=== PATIENT | female | born 1995 | race Caucasian/White ===

== ENCOUNTER → 2018-07-21 | Outpatient (CLI) | payer BC, MEDICAID ==
--- NOTE | 2018-07-21 17:38 | Diagnostic Imaging Report ---
INDICATION: survey. TECHNIQUE: Multiple real-time grayscale images were obtained over the gravid uterus. COMPARISON: None FINDINGS: There is a single live fetus in a transverse presentation. Placenta is posterior. Placenta appears to be marginal in location. heart rate was recorded at 142 beats per minute. Amniotic fluid volume is normal. survey demonstrates kidneys, bladder and brain to be unremarkable. stomach is not well seen on today's study. Four-chamber heart view was limited. There is a three-vessel cord with normal insertion. spine is unremarkable. Biometrical measurements are as follows: Biparietal 4.64 cm, age 20 weeks 1 days. Head circumference 17.79 cm, age 20 weeks 2 days. Abdominal circumference 15.64 cm, age 20 weeks 6 days. Femur length 3.61 cm, age 21 weeks 4 days. Sonographic estimate age: 20 weeks 5 days. Sonographic estimated date of delivery: 12/03/18. Estimated Weight: 390 gm (+/- 57 gm). LMP percentile: 68%. heart rate: 142 beats per minute. number: 1 of 1. IMPRESSION: Single live IUP 20 weeks 5 days gestational age. Estimated date of confinement sonographically is 12/03/2018. survey is unremarkable although the stomach and four-chamber heart view were not well seen and followup is recommended. In addition, there appears to be a marginal posterior placenta and followup can be for performed. Dictated by: Dictated on workstation # [id number]
== END ==
LOC: RAD 16:01
PROVIDERS: ATTEND Obstetrics & Gynecology
DX: Z36.89 Encounter for other specified antenatal screening (principal); Z3A.20 20 weeks gestation of pregnancy
CPT/HCPCS: 76805

== ENCOUNTER 2018-11-10 18:50 | Outpatient (CLI) | payer MEDICAID ==
[~2018-11-10] VITALS: Ht 167.6 cm; Wt 117.0 kg
--- NOTE | 2018-11-10 18:45 | NUR ---
BURROUGHSSUZANNE Lew presented to unit via AMBULATION from ED, accompanied by S/0, with c/o EPIGASTRIC PAIN. SUZANNE BURROUGHS weighed, gowned, voided, and to bed. EFHM and TOCO applied, VS taken. HEIKESUZANNE Louann oriented to bed controls, call light, TV, heat, and A/C controls.
[2018-11-10 19:02] VITALS: BP 142/84
[2018-11-10] MEDS ORDERED: METF-397 PO (19:14)
[2018-11-10] MEDS ORDERED: PREN-142 PO (19:14)
[2018-11-10 19:50] LABS: BILIRUBIN,URINE NEGATIVE (NEGATIVE); CLARITY,URINE SLIGHTLY CLOUDY; COLOR,URINE YELLOW; GLUCOSE, URINE (UA) NEGATIVE (NEGATIVE); KETONES,URINE NEGATIVE (NEGATIVE); LEUKOCYTE ESTERASE ,URINE 1+ (NEGATIVE); NITRITE,URINE NEGATIVE (NEGATIVE); PH,URINE 6.5 (5-9); PROTEIN,URINE 1+ (NEGATIVE); UROBILINOGEN,URINE 4 MG/DL (NORMAL)
[2018-11-10 19:58] LABS: BACTERIA,URINE FEW /HPF; SQUAMOUS EPITHELIAL CELL,UR 25-50 /HPF
[2018-11-10 20:00] VITALS: BP 125/77
[2018-11-10] MEDS ORDERED: FLU QUADRIvalent (5+ YOA) 2018-2019 (AFLURIA) 0.5 ML IM ONE (20:00)
[2018-11-10 20:47] LABS: BASOPHILS % (AUTO) 0 % (0-10); EOSINOPHILS # (AUTO) 0.2 10^3/uL (0.0-0.3); EOSINOPHILS % (AUTO) 1 % (0-10); HEMATOCRIT 34 % (35-52); HEMOGLOBIN 11.4 G/DL (11.5-16.0); LYMPHOCYTES # (AUTO) 2.5 X 10^3 (1.0-4.0); LYMPHOCYTES % (AUTO) 18 % (12-44); MEAN CORPUSCULAR HEMOGLOBIN 29 PG (25-34); MEAN CORPUSCULAR HGB CONC 33 G/DL (32-36); MEAN CORPUSCULAR VOLUME 87 FL (80-99); MEAN PLATELET VOLUME 9.9 FL (7.4-10.4); MONOCYTES # (AUTO) 1.3 X 10^3 (0.0-1.0); MONOCYTES % (AUTO) 9 % (0-12); NEUTROPHILS # (AUTO) 10.2 X 10^3 (1.8-7.8); NEUTROPHILS % (AUTO) 72 % (42-75); PLATELET COUNT 410 10^3/uL (130-400); RED CELL DISTRIBUTION WIDTH 12.7 % (10.0-14.5); WHITE BLOOD COUNT 14.3 10^3/uL (4.3-11.0)
[2018-11-10 21:05] LABS: ALANINE AMINOTRANSFERASE 11 U/L (0-55); ALBUMIN 3.4 GM/DL (3.2-4.5); ALKALINE PHOSPHATASE 151 U/L (40-136); BILIRUBIN,TOTAL 0.3 MG/DL (0.1-1.0); BUN/CREATININE RATIO 9; CALCIUM 9.6 MG/DL (8.5-10.1); CARBON DIOXIDE 22 MMOL/L (21-32); CHLORIDE 105 MMOL/L (98-107); CREATININE SERUM 0.64 MG/DL (0.60-1.30); GFR ESTIMATED > 60; GLUCOSE 86 MG/DL (70-105); POTASSIUM 4.1 MMOL/L (3.6-5.0); SODIUM 137 MMOL/L (135-145); TOTAL PROTEIN 6.7 GM/DL (6.4-8.2)
[2018-11-10 21:07] LABS: BAND NEUTROPHILS 0 %; BASOPHILS % (MANUAL) 1 %; EOSINOPHILS % (MANUAL) 0 %; LYMPHOCYTES % (MANUAL) 24 %; MONOCYTES % (MANUAL) 6 %; NEUTROPHILS % (MANUAL) 69 %; RBC MORPH NORMAL
[2018-11-10] MEDS ORDERED: HYDROcodone/APAP 5 MG/325 MG (LORTAB) TAB PO ONE (21:30)
--- NOTE | 2018-11-10 22:08 | NUR ---
POC reviewed w/pt. & SO, both verbalized understanding, reassurance given & instructed pt. to go to sched appt. in office tomorrow. Pt. taken off monitor & getting dressed to go home. D/C instructions given & explained, pt. verbalized understanding & signed, copy of D/C instructions to pt. Pt. left [facility] ambulatory escorted by SO, to home via private vehicle.
== END 2018-11-10 22:08 | disposition home or self-care (01) ==
LOC: WSo 18:50 → LDRP 18:50 → WSo 22:08
PROVIDERS: ATTEND Obstetrics & Gynecology
DX: O99.89 Other specified diseases and conditions complicating pregnancy, childbirth and the puerperium (principal); R10.11 Right upper quadrant pain; Z3A.36 36 weeks gestation of pregnancy
CPT/HCPCS: 36415; 80053; 81000; 85007; 85027; 87088; 87804; 99213

== ENCOUNTER 2018-12-03 07:10 | Inpatient (IN) | payer MEDICAID ==
[~2018-12-03] VITALS: Ht 172.7 cm; Wt 121.1 kg
[2018-12-03] VITALS (57 sets, daily range): BP systolic 92–174; BP diastolic 50–97
[~2018-12-03 07:10] MED LIST: METF-397 PO; PREN-142 PO
--- OUTSIDE RECORDS SUMMARY | 2018-12-03 07:22 | XMS REPORT | Continuity of Care Document ---
Author Author [facility] Address Unknown Phone Unavailable Allergies Active Description Code Type Severity Reaction Onset Reported/Identified Relationship to Patient Clinical Status Yes No Known Drug Allergies [id number] Drug Allergy Unknown N/A 11/10/2018 Medications There is no data. Problems Date Dx Coded Attending Type Code Diagnosis Diagnosed By 04/21/2014 MELL ARCE DO 625.9 PELVIC PAIN 04/21/2014 MELL ARCE DO V74.5 STD SCREEN 04/21/2014 NICOLE ENGLE APRN 625.9 PELVIC PAIN 04/21/2014 NICOLE ENGLE APRN V74.5 STD SCREEN 12/07/2014 NICOLE ENGLE APRN V25.09 CONTRACEPTIVE COUNSELING - GENERAL 07/23/2018 Ot Z36.89 ENCOUNTER FOR OTHER SPECIFIED 07/23/2018 Ot Z3A.20 20 WEEKS GESTATION OF Procedures Code [place] [id number] TRICHOMONAS (IN-HOUSE) 04/21/2014 55480 GC/CHLAM PROBE ([facility]) 04/22/2014 60641 CULTURE UROGENITAL 04/25/2014 78528 TEST, URINE (IN- HOUSE) 12/07/2014 Results Test Result Range Complete urinalysis with reflex to culture - 11/10/18 19:40 Urine color determination YELLOW NRG Urine clarity determination SLIGHTLY CLOUDY NRG Urine pH measurement by test strip 6.5 5-9 Specific gravity of urine by test strip 1.020 1.016- 1.022 Urine protein assay by test strip, semi-quantitative 1+ NEGATIVE Urine glucose detection by automated test strip NEGATIVE NEGATIVE Erythrocytes detection in urine sediment by light microscopy NEGATIVE NEGATIVE Urine ketones detection by automated test strip NEGATIVE NEGATIVE Urine nitrite detection by test strip NEGATIVE NEGATIVE Urine total bilirubin detection by test strip NEGATIVE NEGATIVE Urine urobilinogen measurement by automated test strip (mass/volume) 4 mg/dL NORMAL Urine leukocyte esterase detection by dipstick 1+ NEGATIVE Automated urine sediment erythrocyte count by microscopy (number/high power field) NONE NRG Automated urine sediment leukocyte count by microscopy (number/high power field ) [HPF] NRG Bacteria detection in urine sediment by light microscopy FEW NRG Squamous epithelial cells detection in urine sediment by light microscopy 25-50 NRG Crystals detection in urine sediment by light microscopy NONE NRG Casts detection in urine sediment by light microscopy NONE NRG Mucus detection in urine sediment by light microscopy NEGATIVE NRG Complete urinalysis with reflex to culture NO NRG Bacterial urine culture - 11/10/18 19:40 Bacterial urine culture SEE REPORT NRG COLONY COUNT . NRG Complete blood count (CBC) with automated white blood cell (WBC) differential - 11/10/18 20:39 Blood leukocytes automated count (number/volume) 14.3 10*3/uL 4.3-11.0 Blood erythrocytes automated count (number/volume) 3.93 10*6/uL 4.35-5.85 Venous blood hemoglobin measurement (mass/volume) 11.4 g/dL 11.5-16.0 Blood hematocrit (volume fraction) 34 % 35-52 Automated erythrocyte mean corpuscular volume 87 [foz_us] 80-99 Automated erythrocyte mean corpuscular hemoglobin (mass per erythrocyte) 29 pg 25-34 Automated erythrocyte mean corpuscular hemoglobin concentration measurement ( mass/volume) 33 g/dL 32-36 Automated erythrocyte distribution width ratio 12.7 % 10.0-14.5 Automated blood platelet count (count/volume) 410 10*3/uL 130-400 Automated blood platelet mean volume measurement 9.9 [foz_us] 7.4-10.4 Automated blood neutrophils/100 leukocytes 72 % 42-75 Automated blood lymphocytes/100 leukocytes 18 % 12-44 Blood monocytes/100 leukocytes 9 % 0-12 Automated blood eosinophils/100 leukocytes 1 % 0-10 Automated blood basophils/100 leukocytes 0 % 0-10 Blood neutrophils automated count (number/volume) 10.2 10*3 1.8-7.8 Blood lymphocytes automated count (number/volume) 2.5 10*3 1.0-4.0 Blood monocytes automated count (number/volume) 1.3 10*3 0.0-1.0 Automated eosinophil count 0.2 10*3/uL 0.0-0.3 Automated blood basophil count (count/volume) 0.0 10*3/uL 0.0-0.1 Comprehensive metabolic panel - 11/10/18 20:39 Serum or plasma sodium measurement (moles/volume) 137 mmol/L 135-145 Serum or plasma potassium measurement (moles/volume) 4.1 mmol/L 3.6-5.0 Serum or plasma chloride measurement (moles/volume) 105 mmol/L 98-107 Carbon dioxide 22 mmol/L 21-32 Serum or plasma anion gap determination (moles/volume) 10 mmol/L 5-14 Serum or plasma urea nitrogen measurement (mass/volume) 6 mg/dL 7-18 Serum or plasma creatinine measurement (mass/volume) 0.64 mg/dL 0.60-1.30 Serum or plasma urea nitrogen/creatinine mass ratio 9 NRG Serum or plasma creatinine measurement with calculation of estimated glomerular filtration rate > NRG Serum or plasma glucose measurement (mass/volume) 86 mg/dL 70-105 Serum or plasma calcium measurement (mass/volume) 9.6 mg/dL 8.5-10.1 Serum or plasma total bilirubin measurement (mass/volume) 0.3 mg/dL 0.1-1.0 Serum or plasma alkaline phosphatase measurement (enzymatic activity/volume) 151 U/L 40-136 Serum or plasma aspartate aminotransferase measurement (enzymatic activity/ volume) 15 U/L 5-34 Serum or plasma alanine aminotransferase measurement (enzymatic activity/volume ) 11 U/L 0-55 Serum or plasma protein measurement (mass/volume) 6.7 g/dL 6.4-8.2 Serum or plasma albumin measurement (mass/volume) 3.4 g/dL 3.2-4.5 CALCIUM CORRECTED 10.1 mg/dL 8.5-10.1 Blood manual differential performed detection - 11/10/18 20:39 Blood monocytes/100 leukocytes 6 % NRG Manual blood segmented neutrophils/100 leukocytes 69 % NRG Blood band neutrophils/100 leukocytes 0 % NRG Manual blood lymphocytes/100 leukocytes 24 % NRG Manual eosinophils/100 leukocytes in nose 0 % NRG Manual blood basophils/100 leukocytes 1 % NRG Blood erythrocyte morphology finding identification NORMAL NRG Influenza virus A and B antigen detection - 11/10/18 21:25 FLU RESULT NEGATIVE FOR INFLUENZA A AND B ANTIGENS BY IA NRG Encounters ACCT No. Visit Date/Time Discharge Status Pt. Type Provider Facility Loc./Unit Complaint [id number] 12/07/2014 15:41:00 12/07/2014 23:59:59 CLS Outpatient FABRIZIO ENGLE APRNDU Donis [id number] 04/21/2014 17:26:00 04/21/2014 23:59:59 CLS Outpatient MELL ARCE DO [id number] 11/10/2018 18:50:00 11/10/2018 22:08:00 DIS Outpatient LEBRON CAMARGO DO [facility] CONTRACTIONS [id number] 07/21/2018 16:01:00 Document Registration
[2018-12-03] MEDS ORDERED: D5 LR IV SOLUTION 1,000 ML IV ONE (07:23)
[2018-12-03] MEDS ORDERED: OXYTOCIN/NORMAL SALINE 500 ML IV SCH (07:23)
[2018-12-03] MEDS ORDERED: MINERAL OIL CONCENTRATE 99.9% 15 ML UDC TOP PRN (07:30)
--- NOTE | 2018-12-03 07:30 | NUR ---
SUZANNE BURROUGHS presented to unit via AMBULATORY FROM HOME, accompanied by MOTHER AND SO, FOR SCHEDULED INDUCTION OF LABOR. SUZANNE BURROUGHS weighed, gowned, voided, and to bed. EFHM and TOCO applied, VS taken. SUZANNE BURROUGHS oriented to bed controls, call light, TV, heat, and A/C controls.
--- NOTE | 2018-12-03 07:34 | History & Physical-OB ---
OB - Chief Complaint & HPI Date/Time Date of Admission: Date of Admission: Dec 03, 2018 at 07:10 Date seen by a Provider: Dec 03, 2018 Time Seen by a Provider: 07:30 Chief Complaint/History OB-Reason for Admission/Chief: Induction of Labor Hx : 1 Hx Para: 0 Admission Nurse Assessment Rev: Yes History of Labs A neg Antibody neg RI RPR NR HIV NR GC neg GBS neg Allergies and Home Medications Allergies Coded Allergies: No Known Drug Allergies (Unverified , 11/10/18) Home Medications Metformin HCl 500 Mg Tablet, 500 MG PO DAILY, (Reported) Vit No.124/Iron/FA 1 Each Tablet, 1 EACH PO DAILY, (Reported) Patient Home Medication List Home Medication List Reviewed: Yes OB - History Hx of Present Care: Yes Ultrasounds: Normal mid trimester US Obstetrical Complications: None Medical Complications: None Patient Past Medical History n/a OB - Admission Exam Physical Exam HEENT: NCAT Heart: Rhythm Normal Lungs: Clear Abdomen: Gravid Extremities: Normal Reflexes: Normal Cervical Dilatation: 3cm Effacement: 75% Station: -1 Membranes: Intact Heart Rate: 130's Accelerations: Accelerations Present Decelerations: No Decelerations Short Term Variability: Present Dock Hand Variability: Average (6-25) Contractions on Admission: 6-10 Minutes Apart Intensity: Mild Upton Scoring Tool (Modified) Dilation (cm): 3-4cm (2) Effacement (%): 51-79% (2) Descent/Station: -1,0 (2) Cervix Consistency: Soft (2) Cervix Position: Anterior (2) Upton Score: 9 OB - Assessment/Plan/Diagnosis Assessment Assessment: induction of labor Admission Dx 23 yo G1 @ 39 weeks GBS neg Admission Status: Inpatient Order (span 2 midnights) Reason for Inpatient Admission: Induction of labor at term Plan Plan: Induction Induction Method: per Pitocin Protocol DOMITILA TAO DO Dec 03, 2018 07:34
--- NOTE | 2018-12-03 07:35 | NUR ---
THIS RN INTRODUCES SELF TO PT, SO, AND MOTHER. DISCUSSES PLAN FO CARE WITH PT. QUESTIONS ANSWERED. CALL LIGHT WITHIN REACH.
[2018-12-03 08:21] LABS: BASOPHILS % (AUTO) 0 % (0-10); EOSINOPHILS # (AUTO) 0.2 10^3/uL (0.0-0.3); EOSINOPHILS % (AUTO) 1 % (0-10); HEMATOCRIT 34 % (35-52); HEMOGLOBIN 11.7 G/DL (11.5-16.0); LYMPHOCYTES # (AUTO) 2.9 X 10^3 (1.0-4.0); LYMPHOCYTES % (AUTO) 22 % (12-44); MEAN CORPUSCULAR HEMOGLOBIN 29 PG (25-34); MEAN CORPUSCULAR HGB CONC 34 G/DL (32-36); MEAN CORPUSCULAR VOLUME 85 FL (80-99); MEAN PLATELET VOLUME 9.9 FL (7.4-10.4); MONOCYTES # (AUTO) 1.4 X 10^3 (0.0-1.0); MONOCYTES % (AUTO) 11 % (0-12); NEUTROPHILS # (AUTO) 8.6 X 10^3 (1.8-7.8); NEUTROPHILS % (AUTO) 66 % (42-75); PLATELET COUNT 409 10^3/uL (130-400)
[2018-12-03] MEDS: D5 LR IV SOLUTION 1,000 ML IV SCH ×2 (08:30→16:13)
--- NOTE | 2018-12-03 08:30 | NUR ---
THIS RN, YAS, BRITTANY, AND JOSE, SRNA AT BEDSIDE FOR IV INSERTION. PT HAVING A VERY HIGH ANXIETY EPISODE. IV INSERTION ON 4TH ATTEMPT. PT VERY TEARFUL AND EMOTIONAL ABOUT IV INSERTION. DR TAO AT BEDSIDE 0845 FOR AROM AND SVE
--- NOTE | 2018-12-03 08:45 | NUR ---
DR TAO AT BEDSIDE FOR SVE AND AROM. CLEAR FLUID. 3.5//-2
[2018-12-03] MEDS ORDERED: FLU QUADRIvalent (5+ YOA) 2018-2019 (AFLURIA) 0.5 ML IM ONE (09:30)
[2018-12-03] MEDS ORDERED: SUFENTA 0.6MCG/ML BUPIVA 0.125 100 ML ONE (09:39)
--- NOTE | 2018-12-03 10:05 | NUR ---
anesthesia at bedside for epidural placement. amaury GARCIA and Jai SALES OFFICE COORDINATOR
[2018-12-03] MEDS ORDERED: METOCLOPRAMIDE INJ 10 MG/2 ML (REGLAN) IV PRN (11:45)
[2018-12-03] MEDS ORDERED: EPIDURAL (SUFENTA 0.6MCG/ML BUPIVA 0.125%) 100 ML BAG EPI SCH (11:45)
[2018-12-03] MEDS ORDERED: ONDANSETRON 4 MG/2 ML (SDV) Z0FRAN IV PRN (11:45)
[2018-12-03] MEDS ORDERED: LACTATED RINGERS 1,000 ML IV SCH (11:45)
[2018-12-03] MEDS ORDERED: diphenhydrAMINE 50 MG/ML INJ (BENADRYL) IV PRN (11:45)
[2018-12-03] MEDS ORDERED: NALOXONE 0.4 MG/ML 1 ML (NARCAN) VIAL IV PRN ×2 (11:45)
--- NOTE | 2018-12-03 12:30 | NUR ---
DR TAO UPDATED ON PT REPORT. SVE, UC PATTERN, EPIDURAL PLACED AND PT COMFORTABLE. NO NEW ORDERS AT THIS TIME.
[2018-12-03] MEDS ORDERED: CATHETER FLUSH 10 ML SYR IV SCH (14:00)
--- NOTE | 2018-12-03 17:00 | NUR ---
NATALEE WITH ANESTHESIA CALLED AT THIS TIME WITH PT REPORT. PT CO PAIN WITH UC, PT ONLY 6 CM. THIS RN HAS ADMIN 4 BOLUS DOSES TOTAL. NO RELIEF. EPIDURAL CATH NEEDS REEVAL AND/OR REDOSE. NATALEE TOLD RN THAT THEY WILL BE UNAVAILABLE FOR A WHILE AND WILL GET UP THERE WHENEVER THEY CAN.
[2018-12-03] MEDS ORDERED: fentaNYL INJECTION 100 MCG/2 ML AMP ONE (17:47)
--- NOTE | 2018-12-03 18:09 | NUR ---
DR TAO UPDATED ON PT REPORT. SVE 8.5CM, GETTING RELIEF FROM ANESTHESIA REDOSE NOW.
--- NOTE | 2018-12-03 18:51 | NUR ---
MASTER ALBRIGHT CALLED WITH UPDATE PT REPORT. PT UNCONTROLLABLE CRYING, CO PAIN 10/. STILL 8.5CM WITH NO PAIN RELIEF. YOHANA GARCIA GAVE FENT DOSE ABOUT 1HR AGO, PT GOT TEMPORARY RELIEF. MASTER ALBRIGHT STATES SHE JUST GOT HOME AND HAS NOT BEEN HOME SINCE 0600. IT WILL BE ATLEAST 30 MIN UNTIL SHE WILL BE TO LD AND PT WILL HAVE TO WAIT.
[2018-12-03] MEDS ORDERED: LIDOCAINE PF 2% 5 ML (XYLOCAINE) VIAL ONE (19:03)
--- NOTE | 2018-12-03 19:05 | NUR ---
REPORT GIVEN TO BRITTANY AVERY
--- NOTE | 2018-12-03 19:15 | NUR ---
UPDATED PT REPORT GIVEN TO DR TAO AT THIS TIME. SVE, FHT WITH VARIABLES, NO PAIN CONTROL WITH EPIDURAL, WAITING ON ANESTHESIA FOR REDOSE. NO NEW ORDERS AT THIS TIME.
[2018-12-03] MEDS ORDERED: PROMETHAZINE INJ 25 MG/ML (PHENERGAN) AMP IVP ONE (20:45)
[2018-12-03] MEDS: OXYTOCIN/NORMAL SALINE 500 ML IV SCH ×2 (22:35→23:27)
[2018-12-03] MEDS ORDERED: METHYLERGONOVINE 0.2 MG/ML (METHERGINE) AMP ONE (22:45)
[2018-12-03] MEDS ORDERED: BENZOCAINE/MENTHOL (DERMOPLAST) 56 ML CAN TP PRN (23:15)
[2018-12-03] MEDS ORDERED: MEASLES,MUMPS,RUBELLA 1 EA INJ SQ ONE (23:15)
[2018-12-03] MEDS ORDERED: METHYLERGONOVINE 0.2 MG/ML (METHERGINE) AMP IM ONE (23:15)
[2018-12-03] MEDS ORDERED: WITCH HAZEL(TUCKS) 40 EA JAR TOP PRN (23:15)
[2018-12-03] MEDS ORDERED: DIBUCAINE (NUPERCAINAL) 1% OINT 30 GM TOP PRN (23:15)
[2018-12-03] MEDS ORDERED: TETANUS,DIPTH,PERTUSS P/F (BOOSTRIX) 0.5 ML VIAL IM ONE (23:15)
--- NOTE | 2018-12-03 23:20 | OB Labor & Delivery Record ---
L&D History Date of Service Date of Service: Dec 03, 2018 History Expected Date of Delivery: Dec 04, 2018 Gestational Age in Weeks: 39 Hx : 1 Hx Para: 0 Complications Events: Routine care Operative Indications (Cesarea: N/A-Vaginal Delivery Intrapartal Events: None L&D Stage1 Stage One Onset of Labor - Date: Dec 03, 2018 Monitors and Tracing Monitor Mode: External Heart Rate: 120 Station: -1 Residential Variability: Average (6-10) Short Term Variability: Present Presentation: Vertex Vital Signs VS - Last 72 Hours, by Label 12/03/18 12/03/18 12/03/18 12/03/18 08:00 08:30 08:45 09:00 Temp 98.5 Pulse 106 96 100 Resp 18 B/P (MAP) 128/67 (87) 128/81 (97) 125/62 (83) Pulse Ox 98 O2 Delivery Room Air Room Air Room Air Room Air 12/03/18 12/03/18 12/03/18 12/03/18 09:15 09:30 09:45 10:00 Temp 98.3 Pulse 102 105 105 109 Resp 18 B/P (MAP) 130/74 (92) 127/87 (100) 130/82 (98) 153/72 (99) O2 Delivery Room Air Room Air Room Air Room Air 12/03/18 12/03/18 12/03/18 12/03/18 10:15 10:30 10:35 10:38 Pulse 105 98 91 91 B/P (MAP) 138/71 (93) 148/79 (102) 138/71 (93) 126/65 (85) O2 Delivery Room Air Room Air Room Air Room Air 12/03/18 12/03/18 12/03/18 12/03/18 10:41 10:45 10:55 11:00 Pulse 99 99 99 109 Resp 18 B/P (MAP) 117/69 (85) 117/69 (85) 121/65 (83) 116/66 (83) Pulse Ox 98 O2 Delivery Room Air Room Air Room Air Room Air 12/03/18 12/03/18 12/03/18 12/03/18 11:15 11:30 11:45 11:50 Temp 97.5 Pulse 101 96 95 102 B/P (MAP) 112/67 (82) 110/63 (79) 95/50 (65) 119/70 (86) O2 Delivery Room Air Room Air Room Air Room Air 12/03/18 12/03/18 12/03/18 12/03/18 12:00 12:15 12:30 12:45 Temp 97.8 Pulse 94 90 100 90 Resp 16 B/P (MAP) 102/55 (71) 117/58 (77) 119/58 (78) 122/62 (82) O2 Delivery Room Air Room Air Room Air Room Air 12/03/18 12/03/18 12/03/18 12/03/18 13:00 13:15 13:30 13:45 Temp 97.4 Pulse 99 92 88 99 Resp 16 B/P (MAP) 113/56 (75) 122/56 (78) 105/58 (74) 107/57 (74) O2 Delivery Room Air Room Air Room Air Room Air 12/03/18 12/03/18 12/03/18 12/03/18 14:00 14:15 14:30 14:45 Pulse 83 77 92 91 B/P (MAP) 100/59 (73) 92/51 (65) 97/56 (70) 106/59 (75) O2 Delivery Room Air Room Air Room Air Room Air 12/03/18 12/03/18 12/03/18 12/03/18 15:00 15:15 15:30 15:45 Temp 97.3 98.2 Pulse 80 79 84 79 Resp 16 B/P (MAP) 103/57 (72) 106/54 (71) 107/56 (73) 111/60 (77) O2 Delivery Room Air Room Air Room Air Room Air 12/03/18 12/03/18 12/03/18 12/03/18 16:00 16:15 16:30 16:45 Pulse 88 96 91 Resp 18 B/P (MAP) 121/76 (91) 117/72 (87) 119/58 (78) O2 Delivery Room Air Room Air Room Air Room Air 12/03/18 12/03/18 12/03/18 12/03/18 17:00 17:15 17:30 17:45 Pulse 83 B/P (MAP) 102/70 (81) O2 Delivery Room Air Room Air Room Air Room Air 3/21/19 12/03/18 12/03/18 12/03/18 18:00 18:15 18:30 18:45 Temp 98.1 Pulse 109 117 100 Resp 20 B/P (MAP) 137/71 (93) 133/80 (97) 132/88 (103) O2 Delivery Room Air Room Air Room Air Room Air 12/03/18 12/03/18 12/03/18 12/03/18 19:00 19:15 19:30 19:45 Temp 99.4 Pulse 120 114 Resp 18 18 B/P (MAP) 152/91 (111) 143/68 (93) Pulse Ox 100 100 O2 Delivery Room Air Non Rebreather Non Rebreather Non Rebreather O2 Flow Rate 15.00 15.00 15.00 12/03/18 12/03/18 12/03/18 12/03/18 20:00 20:15 20:30 20:45 Pulse 125 123 131 151 Resp 18 18 18 18 B/P (MAP) 142/70 (94) 163/70 (101) Pulse Ox 100 100 100 100 O2 Delivery Non Rebreather Non Rebreather Non Rebreather Non Rebreather O2 Flow Rate 15.00 15.00 15.00 15.00 12/03/18 12/03/18 12/03/18 12/03/18 21:00 21:15 21:30 21:45 Temp 98.1 Pulse 108 114 101 95 Resp 18 18 18 18 B/P (MAP) 139/83 (101) 138/64 (88) 174/97 (122) 140/86 (104) Pulse Ox 95 99 99 99 O2 Delivery Non Rebreather Non Rebreather Non Rebreather Non Rebreather O2 Flow Rate 15.00 15.00 15.00 15.00 12/03/18 12/03/18 22:00 22:15 Pulse 101 107 Resp 18 18 B/P (MAP) 126/62 (83) 126/58 (80) O2 Delivery Room Air Room Air Rupture of Membranes Spontaneous Ruture of Membrane: No Amniotic Membrane Rupture Time: 0820 Amniotic Membrane Fluid Desc.: Clear Vaginal Bleeding Description: Normal Show Induction/Anesthesia Epidural Cath Placement - Time: 1028 Progress/Notes AROM and pitocin augmentation started this am at 0830. Patient received an epidural and progressed to complete and +2 station when I was notified to present for delivery L&D Stage2 Stage Two Stage II Date: Dec 03, 2018 Monitors and Tracing Monitor Mode: External Heart Rate: 120 Monitor Accelerations: None Monitor Decelerations: Variable Residential Variability: Minimal (3-5) Short Term Variability: Present Position: Right Occiput Anterior Presentation: Vertex Cord Descript/Complications Cord Vessel Description: 3 Vessels Delivery Type Delivery Method: Spontaneous Vaginal Anterior Shoulder: Right Episiotomy/Perineal Laceration Laceraction(s)/Extensions: Yes Episiotomy Description: Right Mediolateral Degree (describe repair) RML repaired using 3-0 and 2-0 vicryl suture Condition of Delivery 1 minute Comment: 7 5 minute Comment: 8 Notes Live female weight 8lbs 2 oz Condition of Infant Condition of Infant: Living Exam: No Observed Abnormalities Resuscitation Resuscitation: N/A - Spontaneous Resp L&D Stage3 Stage Three Stage III Date: Dec 03, 2018 Pictocin Pitocin Administration mu/min: 10 Pitocin ml/hr: 10 Pitocin Administration Comment: 2 bags 30 mu ran wide open at delivery of placenta Placenta Delivery Placenta Delivery: Spontaneous Delivery Summary Summary Estimated blood loss (mL): 400 Attending at delivery: Domitila Tao DO Condition of Delivery Examined: Cervix Examined, Uterus Explored Post Hemorrhage: No Intervention Required 0.2 mg methergine used after delivery of placenta for mild uterine atony, which responded immediately and bleeding decreased significantly Condition of Mother stable Condition of (s) stable DOMITILA TAO DO Dec 03, 2018 23:20
--- NOTE | 2018-12-03 23:22 | Discharge Inst-Women's Service ---
Discharge Inst-Women's Serv Depart Medication/Instructions New, Converted or Re-Newed RX: RX on Chart Final Diagnosis POD 2 NVD Consults/Follow Up Additional Follow Up: Yes Orders/Referrals Dr. Tao in 6 weeks Activity Activity: Activity as Tolerated Driving Instructions: No Driving for 1 Week NO SMOKING: NO SMOKING Nothing Inside Vagina: No Douching, No [place], No Tampons Diet Discharge Diet: No Restrictions Symptoms to Report to : Bleeding Excessive, Pain Increased, Fever Over 101 Degrees F, Vaginal Bleeding Increase, Questions/Concerns For Any Problems or Questions: Contact Your Physician DOMITILA TAO DO Dec 03, 2018 23:22
[2018-12-03] MEDS ORDERED: IBUP-844 PO (23:25)
[2018-12-03] MEDS ORDERED: DOCU100C37 PO (23:25)
[2018-12-03] MEDS ORDERED: Benzocaine/Menthol TP (23:25)
[2018-12-03] MEDS ORDERED: DIBU30OI TOP (23:25)
[2018-12-03] MEDS ORDERED: ACHD5005 PO (23:25)
--- NOTE | 2018-12-04 00:30 | NUR ---
Epidural cath removed, tip in tact, pt up and voided first time since delivery, pericare pads changed. Pt transferred to pp unit via ambulation while pushing in crib to room 309.
[2018-12-04 04:26] VITALS: BP 112/64
[2018-12-04] MEDS: IBUPROFEN 600 MG (MOTRIN) TAB PO SCH ×4 (04:26→22:49)
[2018-12-04] MEDS ORDERED: CATHETER FLUSH 10 ML SYR IV SCH (06:00)
--- NOTE | 2018-12-04 06:02 | Postpartum Progress Note ---
Note Note Day # 1 Subjective: Patient is without complaints. Ambulating, voiding. Tolerating a regular diet without nausea or vomiting. Normal lochia. Pain is well controlled with oral pain medications. Objective: Physical Exam: General - Alert and oriented, no apparent distress Abdomen - Soft, appropriately tender to palpation, non-distended, fundus firm at umbilicus Extremities - no edema, negative Agatha's bilaterally Assessment: PPD 1 NVD Plan: Routine care. Encourage breast feeding. Encourage ambulation. Ferrous sulfate supplementation. Plan for discharge tomorrow Vitals - Labs Vital Signs - I&O Vital Signs Date Time Temp Pulse Resp B/P (MAP) Pulse Ox O2 Delivery O2 Flow Rate FiO2 12/04/18 04:26 98.9 100 18 112/64 (80) 98 Room Air 12/03/18 23:45 98.7 89 18 120/57 (78) Room Air 12/03/18 23:30 98.9 98 18 132/60 (84) Room Air 12/03/18 23:15 99.0 114 18 149/65 (93) Room Air 12/03/18 23:00 98.7 18 Room Air 12/03/18 22:45 98.9 133 18 120/75 (90) Room Air 12/03/18 22:24 117 18 105/52 (69) Room Air 12/03/18 22:15 107 18 126/58 (80) Room Air 12/03/18 22:00 101 18 126/62 (83) Room Air 12/03/18 21:45 95 18 140/86 (104) 99 Non Rebreather 15.00 12/03/18 21:30 101 18 174/97 (122) 99 Non Rebreather 15.00 12/03/18 21:15 98.1 114 18 138/64 (88) 99 Non Rebreather 15.00 12/03/18 21:00 108 18 139/83 (101) 95 Non Rebreather 15.00 12/03/18 20:45 151 18 100 Non Rebreather 15.00 12/03/18 20:30 131 18 100 Non Rebreather 15.00 12/03/18 20:15 123 18 163/70 (101) 100 Non Rebreather 15.00 12/03/18 20:00 125 18 142/70 (94) 100 Non Rebreather 15.00 12/03/18 19:45 114 18 143/68 (93) 100 Non Rebreather 15.00 12/03/18 19:30 99.4 120 18 152/91 (111) 100 Non Rebreather 15.00 12/03/18 19:15 Non Rebreather 15.00 12/03/18 19:00 Room Air 12/03/18 18:45 100 132/88 (103) Room Air 12/03/18 18:30 117 133/80 (97) Room Air 12/03/18 18:15 109 20 137/71 (93) Room Air 12/03/18 18:00 98.1 Room Air 12/03/18 17:45 Room Air 12/03/18 17:30 Room Air 12/03/18 17:15 Room Air 12/03/18 17:00 83 102/70 (81) Room Air 12/03/18 16:45 91 119/58 (78) Room Air 12/03/18 16:30 96 18 117/72 (87) Room Air 12/03/18 16:15 88 121/76 (91) Room Air 12/03/18 16:00 Room Air 12/03/18 15:45 98.2 79 111/60 (77) Room Air 12/03/18 15:30 84 107/56 (73) Room Air 12/03/18 15:15 79 106/54 (71) Room Air 12/03/18 15:00 97.3 80 16 103/57 (72) Room Air 12/03/18 14:45 91 106/59 (75) Room Air 12/03/18 14:30 92 97/56 (70) Room Air 12/03/18 14:15 77 92/51 (65) Room Air 12/03/18 14:00 83 100/59 (73) Room Air 12/03/18 13:45 97.4 99 16 107/57 (74) Room Air 12/03/18 13:30 88 105/58 (74) Room Air 12/03/18 13:15 92 122/56 (78) Room Air 12/03/18 13:00 99 113/56 (75) Room Air 12/03/18 12:45 97.8 90 122/62 (82) Room Air 12/03/18 12:30 100 16 119/58 (78) Room Air 12/03/18 12:15 90 117/58 (77) Room Air 12/03/18 12:00 94 102/55 (71) Room Air 12/03/18 11:50 102 119/70 (86) Room Air 12/03/18 11:45 95 95/50 (65) Room Air 12/03/18 11:30 97.5 96 110/63 (79) Room Air 12/03/18 11:15 101 112/67 (82) Room Air 12/03/18 11:00 109 116/66 (83) Room Air 12/03/18 10:55 99 121/65 (83) Room Air 12/03/18 10:45 99 18 117/69 (85) 98 Room Air 12/03/18 10:41 99 117/69 (85) Room Air 12/03/18 10:38 91 126/65 (85) Room Air 12/03/18 10:35 91 138/71 (93) Room Air 12/03/18 10:30 98 148/79 (102) Room Air 12/03/18 10:15 105 138/71 (93) Room Air 12/03/18 10:00 109 153/72 (99) Room Air 12/03/18 09:45 105 130/82 (98) Room Air 12/03/18 09:30 98.3 105 18 127/87 (100) Room Air 12/03/18 09:15 102 130/74 (92) Room Air 12/03/18 09:00 100 125/62 (83) Room Air 12/03/18 08:45 96 128/81 (97) Room Air 12/03/18 08:30 Room Air 12/03/18 08:00 98.5 106 18 128/67 (87) 98 Room Air I & O 12/04/18 07:00 Intake Total 2000 ml Balance 2000 ml Labs Laboratory Tests 12/03/18 08:15: White Blood Count 13.0H, Red Blood Count 4.03L, Hemoglobin 11.7, Hematocrit 34L , Mean Corpuscular Volume 85, Mean Corpuscular Hemoglobin 29, Mean Corpuscular Hemoglobin Concent 34, Red Cell Distribution Width 13.0, Platelet Count 409H, Mean Platelet Volume 9.9, Neutrophils (%) (Auto) 66, Lymphocytes (%) (Auto) 22, Monocytes (%) (Auto) 11, Eosinophils (%) (Auto) 1, Basophils (%) (Auto) 0, Neutrophils # (Auto) 8.6H, Lymphocytes # (Auto) 2.9, Monocytes # (Auto) 1.4H, Eosinophils # (Auto) 0.2, Basophils # (Auto) 0.0 DOMITILA TAO DO Dec 04, 2018 06:02
[2018-12-04 06:44] LABS: BASOPHILS % (AUTO) 0 % (0-10); EOSINOPHILS % (AUTO) 0 % (0-10); HEMATOCRIT 29 % (35-52); HEMOGLOBIN 9.8 G/DL (11.5-16.0); LYMPHOCYTES # (AUTO) 2.7 X 10^3 (1.0-4.0); LYMPHOCYTES % (AUTO) 10 % (12-44); MEAN CORPUSCULAR HEMOGLOBIN 29 PG (25-34); MEAN CORPUSCULAR HGB CONC 34 G/DL (32-36); MEAN CORPUSCULAR VOLUME 87 FL (80-99); MEAN PLATELET VOLUME 10.1 FL (7.4-10.4); MONOCYTES # (AUTO) 2.6 X 10^3 (0.0-1.0); MONOCYTES % (AUTO) 10 % (0-12); NEUTROPHILS # (AUTO) 20.9 X 10^3 (1.8-7.8); NEUTROPHILS % (AUTO) 79 % (42-75); PLATELET COUNT 356 10^3/uL (130-400); RED CELL DISTRIBUTION WIDTH 13.1 % (10.0-14.5); WHITE BLOOD COUNT 26.3 10^3/uL (4.3-11.0)
[2018-12-04] MEDS: DOCUSATE SODIUM 100 MG (COLACE) CAP PO SCH ×2 (10:41→22:49)
[2018-12-04] MEDS: FERROUS SULF 325 MG (IRON) TAB PO SCH (10:42)
[2018-12-04] MEDS: PRENATAL VITAMIN 1 EA TAB PO SCH (10:42)
[2018-12-04 10:47] VITALS: BP 109/71
--- NOTE | 2018-12-04 14:51 | Anesthesia-Regional Post-Op ---
Regional Patient Condition Mental Status: Alert, Oriented x3 Circulation: Same as Pre-Op Headache: Absent Sensation: Full Recovery Motor Block: Absent Post Op Complications Complications None Follow Up Care/Instructions Patient Instructions None needed. Anesthesia/Patient Condition Patient is doing well, no complaints, stable vital signs, no apparent adverse anesthesia problems. No complications reported per nursing. KEYONNA GHOTRA CRNA Dec 04, 2018 14:51
[2018-12-04 15:02] VITALS: BP 94/55
--- NOTE | 2018-12-04 15:02 | NUR ---
PT SLEEPING. VS OBTAINED. S/O AT THE BEDSIDE, NO NEEDS VOICED.
[2018-12-04] MEDS: HYDROcodone/APAP 5 MG/325 MG (LORTAB) TAB PO PRN (16:57)
[2018-12-05] MEDS: HYDROcodone/APAP 5 MG/325 MG (LORTAB) TAB PO PRN ×2 (00:35→11:11)
[2018-12-05 01:05] VITALS: BP 96/60
[2018-12-05 05:56] VITALS: BP 101/70
[2018-12-05] MEDS: IBUPROFEN 600 MG (MOTRIN) TAB PO SCH (05:56)
[2018-12-05 08:05] VITALS: BP 114/64
[2018-12-05] MEDS: FERROUS SULF 325 MG (IRON) TAB PO SCH (08:05)
[2018-12-05] MEDS: PRENATAL VITAMIN 1 EA TAB PO SCH (08:05)
[2018-12-05] MEDS: DOCUSATE SODIUM 100 MG (COLACE) CAP PO SCH (08:05)
--- NOTE | 2018-12-05 09:05 | NUR ---
Dr Ojeda to room to see pt. D/C orders rec'd.
--- NOTE | 2018-12-05 09:07 | Postpartum Progress Note ---
Note Note Day # 2 Subjective: Patient is without complaints. Ambulating, voiding. Tolerating a regular diet without nausea or vomiting. Normal lochia. Pain is well controlled with oral pain medications. Baby transferred to [place] for murmur and desats. Objective: Physical Exam: General - Alert and oriented, no apparent distress Abdomen - Soft, appropriately tender to palpation, non-distended, fundus firm at umbilicus Extremities - no edema, negative Agatha's bilaterally Assessment: PPD 2 NVD Acute blood loss anemia Plan: Routine care. Encourage breast feeding. Encourage ambulation. Ferrous sulfate supplementation. Plan for discharge today. Vitals - Labs Vital Signs - I&O Vital Signs Date Time Temp Pulse Resp B/P (MAP) Pulse Ox O2 Delivery O2 Flow Rate FiO2 12/05/18 08:05 98.3 69 18 114/64 (81) 98 Room Air 12/05/18 05:56 99.3 99 18 101/70 (80) 70 Room Air 12/05/18 01:05 97.9 97 18 96/60 (72) 98 Room Air 12/04/18 15:02 98.0 98 18 94/55 (68) 97 Room Air 12/04/18 10:47 98.0 100 18 109/71 (84) 98 Room Air I & O 12/05/18 07:00 Intake Total 1200 ml Balance 1200 ml DOMITILA TAO DO Dec 05, 2018 09:07
[2018-12-05] MEDS ORDERED: TETANUS,DIPTH,PERTUSS P/F (BOOSTRIX) 0.5 ML VIAL IM ONE (10:46)
--- NOTE | 2018-12-05 11:05 | NUR ---
Discharge instructions explained to pt with copy provided to pt. Pt verbalizes understanding of teaching and signs to verify. Prescriptions given and explained. Tdap and rhogam given, pros/cons/side effects explained as well as VIS given for tdap. Pt requesting pain medication prior to dismissal, denies further needs or concerns at this time.
--- NOTE | 2018-12-05 11:15 | NUR ---
Pt ambulates self off unit accompanied by [place], Mom, RN to private vehicle. All personal belongings with pt. No s/s of distress noted.
== END 2018-12-05 11:15 | disposition home or self-care (01) | DRG 806 ==
LOC: LDRP 07:10
PROVIDERS: ADMIT Obstetrics & Gynecology; ATTEND Obstetrics & Gynecology
PROC: 10E0XZZ Delivery of Products of Conception, External Approach (ICD-10-PCS; principal; 2018-12-03)
PROC: 0W8NXZZ Division of Female Perineum, External Approach (ICD-10-PCS; 2018-12-03)
DX: O72.1 Other immediate postpartum hemorrhage (principal); O90.81 Anemia of the puerperium; D62 Acute posthemorrhagic anemia; Z3A.39 39 weeks gestation of pregnancy; Z37.0 Single live birth
CPT/HCPCS: 36415; 83033; 85025; 86850; 86900; 86901; 90715

== ENCOUNTER → 2021-07-20 | Outpatient (CLI) | payer MEDICAID ==
[~2021-07-20] MED LIST changes: +ACHD5005 PO; +Benzocaine/Menthol TP; +DIBU30OI TOP; +DOCU100C37 PO; +IBUP-844 PO
--- NOTE | 2021-07-20 12:06 | Diagnostic Imaging Report ---
INDICATION: survey. TECHNIQUE: Multiple real-time grayscale images were obtained over the gravid uterus. COMPARISON: None FINDINGS: There is a single live fetus in a breech presentation. heart rate was recorded at 165 bpm. Placenta is posterior. Amniotic fluid volume is normal. survey demonstrates kidneys, bladder and stomach are unremarkable. brain is unremarkable. There is a three-vessel cord with normal insertion. spine is unremarkable. Four-chamber heart view is somewhat limited due to position. Biometrical measurements are as follows: Biparietal 4.05 cm, age 18 weeks 3 days. Head circumference 15.97 cm, age 18 weeks 6 days. Abdominal circumference 12.59 cm, age 18 weeks 2 days. Femur length 3.06 cm, age 19 weeks 4 days. Sonographic estimate age: 18 weeks 6 days. Sonographic estimated date of delivery: 12/15/2021. Estimated Weight: 257 gm (+/- 38 gm). LMP percentile: 33%. heart rate: 165 beats per minute. number: 1 of 1. IMPRESSION: Single live IUP 18 weeks 6 days gestational age with estimated date of confinement sonographically of 12/15/2021. survey is unremarkable although the four-chamber heart view is somewhat limited due to position. Dictated by: Dictated on workstation # [id number]
== END ==
LOC: RAD 10:00
PROVIDERS: ATTEND Nurse Practitioner Women's Health
DX: Z34.02 Encounter for supervision of normal first pregnancy, second trimester (principal); Z3A.18 18 weeks gestation of pregnancy
CPT/HCPCS: 76805

== ENCOUNTER 2021-12-14 06:24 | Inpatient (IN) | payer MEDICAID ==
[~2021-12-14] VITALS: Ht 170 cm; Wt 105.7 kg
[2021-12-14] VITALS (58 sets, daily range): BP systolic 87–149; BP diastolic 52–97
[2021-12-14] MEDS ORDERED: MINERAL OIL 30 ML OIL TOP PRN (06:30)
[2021-12-14 07:01] LABS: BASOPHILS % (AUTO) 0 % (0-10); EOSINOPHILS # (AUTO) 0.1 10^3/uL (0.0-0.3); EOSINOPHILS % (AUTO) 1 % (0-10); HEMATOCRIT 34 % (35-52); HEMOGLOBIN 11.6 g/dL (11.5-16.0); LYMPHOCYTES # (AUTO) 2.1 10^3/uL (1.0-4.0); LYMPHOCYTES % (AUTO) 21 % (12-44); MEAN CORPUSCULAR HEMOGLOBIN 29 pg (25-34); MEAN CORPUSCULAR HGB CONC 34 g/dL (32-36); MEAN CORPUSCULAR VOLUME 86 fL (80-99); MONOCYTES % (AUTO) 10 % (0-12); NEUTROPHILS # (AUTO) 6.6 10^3/uL (1.8-7.8); NEUTROPHILS % (AUTO) 67 % (42-75); PLATELET COUNT 374 10^3/uL (130-400); WHITE BLOOD COUNT 9.9 10^3/uL (4.3-11.0)
[2021-12-14] MEDS: D5 LR IV SOLUTION 1,000 ML IV SCH ×2 (07:02→15:53)
[2021-12-14] MEDS ORDERED: OXYTOCIN PRE-MIX DRIP 500 ML IV SCH (09:00)
--- NOTE | 2021-12-14 10:32 | History & Physical-OB ---
OB - Chief Complaint & HPI Date/Time Date of Admission: Date of Admission: Dec 14, 2021 at 06:24 Date seen by a Provider: Dec 14, 2021 Time Seen by a Provider: 07:15 Chief Complaint/History OB-Reason for Admission/Chief: Induction of Labor Hx : 2 Hx Para: 1 Expected Date of Delivery: Dec 14, 2021 Gestational Age in Weeks: 40 Gestational Age in Days: 0 Admission Nurse Assessment Rev: Yes History of Labs A neg Antibody neg RI RPR NR HBsAg NR HIV NR GC neg GBS neg Allergies and Home Medications Allergies Coded Allergies: No Known Drug Allergies (Unverified , 11/10/18) Patient Home Medication List Home Medication List Reviewed: Yes Dibucaine (Dibucaine) 30 Gm Oint, 0 GM TOP UD PRN for PAIN- SEE INSTRUCTIONS Prescribed by: DOMITILA TAO on 12/03/182324 Docusate Sodium (Docusate Sodium) 100 Mg Capsule, 100 MG PO BID PRN for CONSTIPATION-1ST LINE Prescribed by: DOMITILA TAO on 12/03/182324 Hydrocodone Bit/Acetaminophen (Lortab 5 Mg Tablet) 1 Tab Tab, 1 TAB PO Q4H PRN for PAIN-MODERATE Prescribed by: DOMITILA TAO on 12/03/182324 Ibuprofen (Ibu) 600 Mg Tablet, 600 MG PO Q6H Prescribed by: DOMITILA TAO on 12/03/182324 Metformin HCl (Metformin HCl) 500 Mg Tablet, 500 MG PO DAILY, (Reported) Entered as Reported by: JULY MUÑIZ on 11/10/181913 Vit No.124/Iron/FA ( Vitamin Tablet) 1 Each Tablet, 1 EACH PO DAILY, (Reported) Entered as Reported by: JULY MUÑIZ on 11/10/181913 [Benzocaine/Menthol] 56 ML AEROSOL, 56 ML TP UD PRN for PAIN- SEE INSTRUCTIONS Prescribed by: DOMITILA TAO on 12/03/182324 OB - History Hx of Present Care: Yes Ultrasounds: Normal mid trimester US Obstetrical Complications: None Medical Complications: None Patient Past Medical History n/a Immunizations Influenza Vaccine Up-to-Date: No; Not Current Hepatitis A: No Hepatitis B: No OB - Admission Exam Physical Exam Vitals: Vital Signs 12/14/21 12/14/21 08:25 09:50 Temp 36.9 Pulse 88 Resp 16 B/P (MAP) 110/81 (91) Pulse Ox 96 O2 Delivery Room Air HEENT: NCAT Heart: Rhythm Normal Lungs: Clear Abdomen: Gravid Extremities: Normal Reflexes: Normal Cervical Dilatation: 3cm Effacement: 75% Station: -1 Membranes: Intact Heart Rate: 130's Accelerations: Accelerations Present Decelerations: No Decelerations Short Term Variability: Present Geographic Information Systems Manager Variability: Average (6-25) Contractions on Admission: 6-10 Minutes Apart Intensity: Mild [place]pton Scoring Tool (Modified) Dilation (cm): 3-4cm (2) Effacement (%): 51-79% (2) Descent/Station: -1,0 (2) Cervix Consistency: Soft (2) Cervix Position: Anterior (2) Add 1 point for: Each previous vaginal delivery (1) Upton Score: 11 Labs Laboratory Tests Test 12/14/21 06:55 Range/Units White Blood Count 9.9 4.3-11.0 10^3/uL Red Blood Count 3.95 3.80-5.11 10^6/uL Hemoglobin 11.6 11.5-16.0 g/dL Hematocrit 34 L 35-52 % Mean Corpuscular Volume 86 80-99 fL Mean Corpuscular Hemoglobin 29 25-34 pg Mean Corpuscular Hemoglobin Concent 34 32-36 g/dL Red Cell Distribution Width 12.3 10.0-14.5 % Platelet Count 374 130-400 10^3/uL Mean Platelet Volume 10.0 9.0-12.2 fL Immature Granulocyte % (Auto) 1 % Neutrophils (%) (Auto) 67 42-75 % Lymphocytes (%) (Auto) 21 12-44 % Monocytes (%) (Auto) 10 0-12 % Eosinophils (%) (Auto) 1 0-10 % Basophils (%) (Auto) 0 0-10 % Neutrophils # (Auto) 6.6 1.8-7.8 10^3/uL Lymphocytes # (Auto) 2.1 1.0-4.0 10^3/uL Monocytes # (Auto) 1.0 0.0-1.0 10^3/uL Eosinophils # (Auto) 0.1 0.0-0.3 10^3/uL Basophils # (Auto) 0.0 0.0-0.1 10^3/uL Immature Granulocyte # (Auto) 0.1 0.0-0.1 10^3/uL OB - Assessment/Plan/Diagnosis Assessment Assessment: induction of labor Admission Dx 26 yo @ 40 weeks IOL Post dates GBS neg Admission Status: Inpatient Order (span 2 midnights) Reason for Inpatient Admission: 40 week IOL Plan Induction Method: DOMITILA GAONA DO Dec 14, 2021 10:32
[2021-12-14] MEDS ORDERED: BUPIVACAINE 0.25% 10 ML (SENSORCAINE) VIAL ONE (13:03)
[2021-12-14] MEDS ORDERED: fentaNYL INJ 100 MCG/2 ML AMP ONE (13:03)
[2021-12-14] MEDS ORDERED: fentaNYL 2 mcg/ml BUPIVA 0.125 100 ML ONE (13:23)
[2021-12-14] MEDS: fentaNYL 2 mcg/ml BUPIVA 0.125 100 ML IV SCH ×2 (13:25→20:12)
[2021-12-14] MEDS ORDERED: CATHETER FLUSH 10 ML SYR IV SCH (14:00)
[2021-12-14] MEDS ORDERED: ONDANSETRON 4 MG/2 ML (SDV) Z0FRAN ONE (14:42)
[2021-12-14] MEDS: ONDANSETRON 4 MG/2 ML (SDV) Z0FRAN IV PRN ×2 (14:44→20:09)
[2021-12-14] MEDS ORDERED: CATHETER FLUSH 10 ML SYR IV PRN (14:45)
[2021-12-14] MEDS ORDERED: diphenhydrAMINE 50 MG/ML INJ (BENADRYL) IV PRN (14:45)
[2021-12-14] MEDS ORDERED: LACTATED RINGERS 1,000 ML IV ONE (14:45)
[2021-12-14] MEDS ORDERED: NALOXONE 0.4 MG/ML 1 ML (NARCAN) VIAL IV PRN ×2 (14:45→23:15)
[2021-12-14] MEDS ORDERED: METOCLOPRAMIDE INJ 10 MG/2 ML (REGLAN) IV PRN (15:15)
[2021-12-14] MEDS ORDERED: LIDOCAINE/EPI 2% 1:200,00 (XYLOCAINE) 10 ML VIAL ONE (19:30)
[2021-12-14] MEDS ORDERED: METHYLERGONOVINE 0.2 MG/ML (METHERGINE) AMP ONE (22:57)
--- NOTE | 2021-12-14 23:11 | OB Labor & Delivery Record ---
L&D History Date of Service Date of Service: Dec 14, 2021 History Expected Date of Delivery: Dec 14, 2021 Gestational Age in Weeks: 40 Hx : 2 Hx Para: 1 Complications Events: Routine care Operative Indications (Cesarea: N/A-Vaginal Delivery Intrapartal Events: None L&D Stage1 Stage One Onset of Labor - Date: Dec 14, 2021 Monitors and Tracing Monitor Mode: Internal Heart Rate: 125 Monitor Accelerations: Uniform Monitor Decelerations: None Station: -1 Snf Variability: Average (6-10) Short Term Variability: Present Presentation: Vertex Vital Signs VS - Last 72 Hours, by Label 12/14/21 12/14/21 12/14/21 12/14/21 06:25 08:25 09:05 09:20 Temp 36.8 36.9 Pulse 137 93 94 91 Resp 18 18 14 14 B/P (MAP) 128/79 (95) 110/75 (87) 118/72 (87) 103/73 (83) Pulse Ox 97 96 O2 Delivery Room Air Room Air 12/14/21 12/14/21 12/14/21 12/14/21 09:35 09:50 10:05 10:20 Temp 36.8 Pulse 70 88 75 85 Resp 18 16 18 18 B/P (MAP) 106/74 (85) 110/81 (91) 119/77 (91) 110/69 (83) 12/14/21 12/14/21 12/14/21 12/14/21 10:35 10:50 11:05 11:20 Pulse 71 83 71 73 Resp 16 14 B/P (MAP) 122/79 (93) 123/75 (91) 113/75 (88) 110/72 (85) 12/14/21 12/14/21 12/14/21 12/14/21 11:35 11:50 12:05 12:20 Pulse 82 100 100 95 B/P (MAP) 108/60 (76) 135/97 (110) 140/66 (90) 130/79 (96) 12/14/21 12/14/21 12/14/21 12/14/21 13:10 13:13 13:16 13:19 Pulse 80 91 101 92 B/P (MAP) 114/75 (88) 120/81 (94) 122/84 (97) 123/82 (96) Pulse Ox 100 100 99 99 12/14/21 12/14/21 12/14/21 12/14/21 13:21 13:24 13:27 13:29 Pulse 88 93 101 115 B/P (MAP) 128/85 (99) 125/79 (94) 108/78 (88) 114/69 (84) Pulse Ox 98 99 97 98 12/14/21 12/14/21 12/14/21 12/14/21 13:33 13:39 13:43 13:49 Pulse 102 117 116 105 B/P (MAP) 117/74 (88) 103/67 (79) 124/59 (80) 121/79 (93) Pulse Ox 98 95 93 95 12/14/21 12/14/21 12/14/21 12/14/21 13:53 14:00 14:15 14:30 Pulse 123 71 71 77 Resp 16 B/P (MAP) 130/58 (82) 103/62 (76) 107/59 (75) Pulse Ox 96 98 94 98 O2 Delivery Room Air Room Air 12/14/21 12/14/21 12/14/21 12/14/21 14:45 15:00 15:30 16:00 Temp 36.9 Pulse 112 116 72 73 Resp 18 20 16 B/P (MAP) 102/58 (73) 108/59 (75) 105/59 (74) 125/56 (79) Pulse Ox 100 O2 Delivery Room Air 12/14/21 12/14/21 12/14/21 12/14/21 16:15 16:30 16:45 17:00 Temp 36.6 Pulse 76 77 82 80 B/P (MAP) 114/55 (74) 123/59 (80) 116/68 (84) 112/73 (86) 12/14/21 12/14/21 12/14/21 12/14/21 17:30 17:45 18:00 18:15 Temp 36.8 Pulse 112 93 88 91 B/P (MAP) 149/59 (89) 94/52 (66) 101/63 (76) 94/54 (67) 12/14/21 12/14/21 12/14/21 12/14/21 18:30 18:45 19:15 19:30 Temp 37.1 Pulse 106 104 93 93 Resp 15 16 18 18 B/P (MAP) 90/55 (67) 87/52 (64) 101/54 (70) 95/52 (66) 12/14/21 12/14/21 12/14/21 12/14/21 19:45 20:00 20:15 20:30 Pulse 88 82 Resp 18 18 18 18 B/P (MAP) 101/56 (71) Pulse Ox 100 100 12/14/21 12/14/21 12/14/21 12/14/21 20:45 21:00 21:15 21:30 Pulse 93 118 122 Resp 18 18 18 18 B/P (MAP) 112/67 (82) 108/65 (79) 125/80 (95) O2 Delivery Room Air Room Air Room Air Room Air Rupture of Membranes Spontaneous Ruture of Membrane: Yes Amniotic Membrane Rupture Time: 0701 Amniotic Membrane Fluid Desc.: Clear Vaginal Bleeding Description: Normal Show Induction/Anesthesia Epidural Cath Placement - Time: 1314 Progress/Notes Patient admitted for 40 week IOL. AROM performed this am at 0705. Pitocin augmentation started approx 0930. Epidural received, she progressed with 14 mu/ min pitocin augmentation to complete and + 2 station. L&D Stage2 Stage Two Stage II Date: Dec 14, 2021 Monitors and Tracing Monitor Mode: Internal Heart Rate: 125 Monitor Accelerations: Uniform Monitor Decelerations: None Snf Variability: Average (6-10) Short Term Variability: Present Position: Right Occiput Anterior Presentation: Vertex Cord Descript/Complications Cord Vessel Description: 3 Vessels Complications nuchal cord reduced x 1 Delivery Type Delivery Method: Spontaneous Vaginal Anterior Shoulder: Left Episiotomy/Perineal Laceration Laceraction(s)/Extensions: No Condition of Delivery 1 minute Comment: 8 5 minute Comment: 9 Notes Live male infant weight 8lbs 2 oz. Condition of Condition of : Living Exam: No Observed Abnormalities Resuscitation Resuscitation: N/A - Spontaneous Resp L&D Stage3 Stage Three Stage III Date: Dec 14, 2021 Pictocin Pitocin Administration mu/min: 14 Pitocin ml/hr: 14 Pitocin Administration Comment: 30 mu wide open pitocin at delivery of placenta Placenta Delivery Placenta Delivery: Spontaneous Delivery Summary Summary Estimated blood loss (mL): 250 Attending at delivery: Domitila Tao DO Condition of Delivery Examined: Cervix Examined, Uterus Explored Post Hemorrhage: No Intervention Required 0.2 mg methergine given IM due to brief uterine atony, with immediate response in good uterine tone. Condition of Mother stable Condition of (s) stable DOMITILA TAO DO Dec 14, 2021 23:11
[2021-12-14] MEDS ORDERED: TETANUS,DIPTH,PERTUSS P/F (BOOSTRIX) 0.5 ML VIAL IM ONE (23:15)
[2021-12-14] MEDS ORDERED: MEASLES,MUMPS,RUBELLA 1 EA INJ SQ ONE (23:15)
[2021-12-14] MEDS ORDERED: HYDROcodone/APAP 5 MG/325 MG (LORTAB) TAB PO PRN (23:15)
[2021-12-14] MEDS ORDERED: WITCH HAZEL(TUCKS) 40 EA JAR TOP PRN (23:15)
[2021-12-14] MEDS ORDERED: DIBUCAINE 1% OINTMENT 30 GM TUBE TOP PRN (23:15)
[2021-12-14] MEDS: OXYTOCIN PRE-MIX DRIP 500 ML IV SCH (23:15)
[2021-12-14] MEDS ORDERED: BENZOCAINE/MENTHOL (DERMOPLAST) 56 ML CAN TP PRN (23:15)
[2021-12-15 01:57] VITALS: BP 123/72
[2021-12-15] MEDS: IBUPROFEN 600 MG (MOTRIN) TAB PO SCH ×4 (01:58→20:32)
[2021-12-15] MEDS: OXYTOCIN PRE-MIX DRIP 500 ML IV SCH (02:17)
[2021-12-15] MEDS ORDERED: ACETAMINOPHEN 500 MG TAB (TYLENOL) ONE (05:56)
[2021-12-15 05:58] VITALS: BP 119/78
[2021-12-15] MEDS ORDERED: CATHETER FLUSH 10 ML SYR IV SCH (06:00)
[2021-12-15] MEDS ORDERED: ACETAMINOPHEN 500 MG TAB (TYLENOL) PO PRN ×2 (06:00→11:15)
[2021-12-15 06:16] LABS: BASOPHILS # (AUTO) 0.1 10^3/uL (0.0-0.1); BASOPHILS % (AUTO) 0 % (0-10); EOSINOPHILS % (AUTO) 0 % (0-10); HEMATOCRIT 32 % (35-52); HEMOGLOBIN 10.7 g/dL (11.5-16.0); LYMPHOCYTES # (AUTO) 2.3 10^3/uL (1.0-4.0); LYMPHOCYTES % (AUTO) 10 % (12-44); MEAN CORPUSCULAR HEMOGLOBIN 29 pg (25-34); MEAN CORPUSCULAR HGB CONC 33 g/dL (32-36); MEAN CORPUSCULAR VOLUME 87 fL (80-99); MEAN PLATELET VOLUME 10.2 fL (9.0-12.2); MONOCYTES # (AUTO) 1.9 10^3/uL (0.0-1.0); MONOCYTES % (AUTO) 9 % (0-12); NEUTROPHILS # (AUTO) 17.8 10^3/uL (1.8-7.8); NEUTROPHILS % (AUTO) 80 % (42-75); PLATELET COUNT 341 10^3/uL (130-400); WHITE BLOOD COUNT 22.1 10^3/uL (4.3-11.0)
[2021-12-15] MEDS: DOCUSATE SODIUM 100 MG (COLACE) CAP PO SCH ×2 (08:39→20:32)
[2021-12-15] MEDS: FERROUS SULF 325 MG (IRON) TAB PO SCH (08:39)
[2021-12-15] MEDS: PRENATAL VITAMIN 1 EA TAB PO SCH (08:39)
[2021-12-15 08:44] VITALS: BP 127/76
--- NOTE | 2021-12-15 09:08 | Postpartum Progress Note ---
Note Note Day # 1 Subjective: Patient is without complaints. Ambulating, voiding. Tolerating a regular diet without nausea or vomiting. Normal lochia. Pain is well controlled with oral pain medications. Objective: Physical Exam: General - Alert and oriented, no apparent distress Abdomen - Soft, appropriately tender to palpation, non-distended, fundus firm at umbilicus Extremities - no edema, negative Agatha's bilaterally Assessment: PPD 1 NVD Leukocytosis Plan: Routine care. Repeat CBC this afternoon, monitor for fevers Encourage breast feeding. Encourage ambulation. Ferrous sulfate supplementation. Plan for discharge tomorrow Vitals - Labs Vital Signs - I&O Vital Signs Date Time Temp Pulse Resp B/P (MAP) Pulse Ox O2 Delivery O2 Flow Rate FiO2 12/15/21 05:58 37.0 89 18 119/78 (92) 97 Room Air 12/15/21 01:57 37.8 110 18 123/72 (89) 97 Room Air 12/15/21 00:00 37.3 18 Room Air 12/14/21 23:45 37.5 95 18 108/63 (78) Room Air 12/14/21 23:30 37.7 94 18 122/77 (92) Room Air 12/14/21 23:15 37.3 97 18 123/74 (90) Room Air 12/14/21 23:00 37.8 114 18 128/63 (84) Room Air 12/14/21 22:49 18 Room Air 12/14/21 22:40 37.5 121 18 139/71 (93) Room Air 12/14/21 22:30 110 18 136/75 (95) Room Air 12/14/21 22:15 109 18 123/77 (92) Room Air 12/14/21 22:00 18 Room Air 12/14/21 21:45 18 Room Air 12/14/21 21:30 18 Room Air 12/14/21 21:15 122 18 125/80 (95) Room Air 12/14/21 21:00 118 18 108/65 (79) Room Air 12/14/21 20:45 93 18 112/67 (82) Room Air 12/14/21 20:30 82 18 101/56 (71) 100 12/14/21 20:15 18 12/14/21 20:00 18 12/14/21 19:45 88 18 100 12/14/21 19:30 93 18 95/52 (66) 12/14/21 19:15 37.1 93 18 101/54 (70) 12/14/21 18:45 104 16 87/52 (64) 12/14/21 18:30 106 15 90/55 (67) 12/14/21 18:15 91 94/54 (67) 12/14/21 18:00 36.8 88 101/63 (76) 12/14/21 17:45 93 94/52 (66) 12/14/21 17:30 112 149/59 (89) 12/14/21 17:00 36.6 80 112/73 (86) 12/14/21 16:45 82 116/68 (84) 12/14/21 16:30 77 123/59 (80) 12/14/21 16:15 76 114/55 (74) 12/14/21 16:00 73 16 125/56 (79) 12/14/21 15:30 36.9 72 20 105/59 (74) 12/14/21 15:00 116 108/59 (75) 12/14/21 14:45 112 18 102/58 (73) 100 Room Air 12/14/21 14:30 77 16 107/59 (75) 98 Room Air 12/14/21 14:15 71 103/62 (76) 94 Room Air 12/14/21 14:00 71 130/58 (82) 98 12/14/21 13:53 123 96 12/14/21 13:49 105 121/79 (93) 95 12/14/21 13:43 116 124/59 (80) 93 12/14/21 13:39 117 103/67 (79) 95 12/14/21 13:33 102 117/74 (88) 98 12/14/21 13:29 115 114/69 (84) 98 12/14/21 13:27 101 108/78 (88) 97 12/14/21 13:24 93 125/79 (94) 99 12/14/21 13:21 88 128/85 (99) 98 12/14/21 13:19 92 123/82 (96) 99 12/14/21 13:16 101 122/84 (97) 99 12/14/21 13:13 91 120/81 (94) 100 12/14/21 13:10 80 114/75 (88) 100 12/14/21 12:20 95 130/79 (96) 12/14/21 12:05 100 140/66 (90) 12/14/21 11:50 100 135/97 (110) 12/14/21 11:35 82 108/60 (76) 12/14/21 11:20 73 110/72 (85) 12/14/21 11:05 71 113/75 (88) 12/14/21 10:50 83 14 123/75 (91) 12/14/21 10:35 71 16 122/79 (93) 12/14/21 10:20 85 18 110/69 (83) 12/14/21 10:05 36.8 75 18 119/77 (91) 12/14/21 09:50 88 16 110/81 (91) 12/14/21 09:35 70 18 106/74 (85) 12/14/21 09:20 91 14 103/73 (83) I & O 12/15/21 07:00 Intake Total 3000 ml Output Total 450 ml Balance 2550 ml Labs Laboratory Tests 12/15/21 05:45: White Blood Count 22.1H, Red Blood Count 3.70L, Hemoglobin 10.7L, Hematocrit 32L , Mean Corpuscular Volume 87, Mean Corpuscular Hemoglobin 29, Mean Corpuscular Hemoglobin Concent 33, Red Cell Distribution Width 12.2, Platelet Count 341, Mean Platelet Volume 10.2, Immature Granulocyte % (Auto) 1, Neutrophils (%) (Auto) 80H, Lymphocytes (%) (Auto) 10L, Monocytes (%) (Auto) 9, Eosinophils (%) (Auto) 0, Basophils (%) (Auto) 0, Neutrophils # (Auto) 17.8H, Lymphocytes # (Auto) 2.3, Monocytes # (Auto) 1.9H, Eosinophils # (Auto) 0.0, Basophils # (Auto) 0.1, Immature Granulocyte # (Auto) 0.1 DOMITILA TAO DO Dec 15, 2021 09:08
--- NOTE | 2021-12-15 09:09 | Discharge Inst-Women's Service ---
Discharge Inst-Women's Serv Depart Medication/Instructions New, Converted or Re-Newed RX: Transmitted to Pharmacy Final Diagnosis PPD 2 NVD Problems Reviewed?: Yes Consults/Follow Up Additional Follow Up: Yes Orders/Referrals Dr. Tao in 6 weeks Activity Activity: Activity as Tolerated Driving Instructions: No Driving for 1 Week NO SMOKING: NO SMOKING Nothing Inside Vagina: No Douching, No [place], No Tampons Diet Discharge Diet: No Restrictions Symptoms to Report to : Bleeding Excessive, Pain Increased, Fever Over 101 Degrees F, Vaginal Bleeding Increase, Questions/Concerns For Any Problems or Questions: Contact Your Physician DOMITILA TAO DO Dec 15, 2021 09:09
[2021-12-15 12:41] VITALS: BP 124/80
--- NOTE | 2021-12-15 16:42 | Anesthesia-Regional Post-Op ---
Regional Patient Condition Mental Status: Alert, Oriented x3 Circulation: Same as Pre-Op Headache: Absent Sensation: Full Recovery Motor Block: Absent Post Op Complications Complications None Follow Up Care/Instructions Patient Instructions None needed. Anesthesia/Patient Condition Patient is doing well, no complaints, stable vital signs, no apparent adverse anesthesia problems. No complications reported per nursing. KEYONNA GHOTRA CRNA Dec 15, 2021 16:42
[2021-12-15 16:55] VITALS: BP 111/77
[2021-12-15 17:36] LABS: HEMATOCRIT 30 % (35-52); HEMOGLOBIN 9.9 g/dL (11.5-16.0); MEAN CORPUSCULAR HEMOGLOBIN 30 pg (25-34); MEAN CORPUSCULAR HGB CONC 33 g/dL (32-36); MEAN CORPUSCULAR VOLUME 89 fL (80-99); MEAN PLATELET VOLUME 9.9 fL (9.0-12.2); PLATELET COUNT 317 10^3/uL (130-400); WHITE BLOOD COUNT 13.3 10^3/uL (4.3-11.0)
[2021-12-16 02:10] VITALS: BP 117/74
[2021-12-16] MEDS: IBUPROFEN 600 MG (MOTRIN) TAB PO SCH ×2 (02:10→09:03)
[2021-12-16 09:00] VITALS: BP 122/73
[2021-12-16] MEDS: DOCUSATE SODIUM 100 MG (COLACE) CAP PO SCH (09:02)
[2021-12-16] MEDS: FERROUS SULF 325 MG (IRON) TAB PO SCH (09:03)
[2021-12-16] MEDS: PRENATAL VITAMIN 1 EA TAB PO SCH (09:03)
--- NOTE | 2021-12-16 11:05 | Postpartum Progress Note ---
Note Note Day # 2 Subjective: Patient is without complaints. Ambulating, voiding. Tolerating a regular diet without nausea or vomiting. Normal lochia. Pain is well controlled with oral pain medications. Objective: Physical Exam: General - Alert and oriented, no apparent distress Abdomen - Soft, appropriately tender to palpation, non-distended, fundus firm at umbilicus Extremities - no edema, negative Agatha's bilaterally Assessment: PPD 2 NVD Leukocytosis improved/ afebrile Plan: Routine care. Encourage breast feeding. Encourage ambulation. Ferrous sulfate supplementation. Plan for discharge today Vitals - Labs Vital Signs - I&O Vital Signs Date Time Temp Pulse Resp B/P (MAP) Pulse Ox O2 Delivery O2 Flow Rate FiO2 12/16/21 09:00 36.9 87 18 122/73 (89) 99 Room Air 12/16/21 02:10 36.8 72 18 117/74 (88) 98 Room Air 12/15/21 20:32 36.8 67 18 99 Room Air 12/15/21 16:55 37.0 79 18 111/77 (88) 99 Room Air 12/15/21 12:41 36.6 80 18 124/80 (95) 100 Room Air Labs Laboratory Tests 12/15/21 17:24: White Blood Count 13.3H, Red Blood Count 3.36L, Hemoglobin 9.9L, Hematocrit 30L, Mean Corpuscular Volume 89, Mean Corpuscular Hemoglobin 30, Mean Corpuscular Hemoglobin Concent 33, Red Cell Distribution Width 12.5, Platelet Count 317, Mean Platelet Volume 9.9 DOMITILA TAO DO Dec 16, 2021 11:05
[2021-12-16] MEDS ORDERED: ACET-93 PO (11:07)
[2021-12-16] MEDS ORDERED: IBUP-844 PO (11:07)
[2021-12-16] MEDS ORDERED: DIBU30OI TOP (11:07)
[2021-12-16] MEDS ORDERED: BENZ78AE5 TP (11:07)
[2021-12-16] MEDS ORDERED: FERR325T24 PO (11:07)
[2021-12-16] MEDS ORDERED: DOCU100C37 PO (11:07)
== END 2021-12-16 13:13 | disposition home or self-care (01) | DRG 806 ==
LOC: LDRP 06:24 → WS 16:47 → LDRP 12-15 02:00
PROVIDERS: ADMIT Obstetrics & Gynecology; ATTEND Obstetrics & Gynecology
PROC: 10E0XZZ Delivery of Products of Conception, External Approach (ICD-10-PCS; principal; 2021-12-14)
PROC: 10907ZC Drainage of Amniotic Fluid, Therapeutic from Products of Conception, Via Natural or Artificial Opening (ICD-10-PCS; 2021-12-14)
DX: O48.0 Post-term pregnancy (principal); O99.13 Other diseases of the blood and blood-forming organs and certain disorders involving the immune mechanism complicating the puerperium; Z37.0 Single live birth; Z3A.40 40 weeks gestation of pregnancy; Z79.84 Long term (current) use of oral hypoglycemic drugs; O69.81X0 Labor and delivery complicated by cord around neck, without compression, not applicable or unspecified; D72.829 Elevated white blood cell count, unspecified
CPT/HCPCS: 36415; 83033; 85025; 85027; 86850; 86900; 86901

== ENCOUNTER 2022-06-18 18:55 | Emergency (ER) | payer MEDICAID ==
[~2022-06-18 18:55] MED LIST changes: +ACET-93 PO; +BENZ78AE5 TP; +FERR325T24 PO
[2022-06-18] MEDS ORDERED: AMOX1TAB12 PO (19:21)
--- NOTE | 2022-06-18 19:22 | ED EENT ---
History of Present Illness General Chief Complaint: Dental Problems/Pain Stated Complaint: THROBBING DENTAL PAIN,CHILLS,HEAD PAIN Nursing Triage Note: PT ARRIVAL TO ER WITH MOTHER VIA PRIVATE VEHICLE WITH COMPLAINT OF DENTAL PAIN. PT HAS DECAYED UPPER RIGHT WISDOM TOOTH. KNOWN TO HAVE BEEN A PROBLEM FOR A WHILE, BUT IN SEVERE PAIN FOR LAST 25 HOURS. PAIN AT A 9/10 Source: patient, family Exam Limitations: no limitations History of Present Illness Date Seen by Provider: Jun 18, 2022 Time Seen by Provider: 19:05 Initial Comments Patient to the ER with chief complaint of subjective chills, right posterior upper molar pain and swelling. She does not follow with a dentist but she did call a dentist to get scheduled for an appointment. She is not on antibiotics yet. She is not having any vomiting or difficulty swallowing. She has not had any dental surgery for her wisdom teeth yet. Allergies and Home Medications Allergies Coded Allergies: No Known Drug Allergies (Unverified , 11/10/18) Patient Home Medication List Home Medication List Reviewed: Yes Acetaminophen (Acetaminophen) 500 Mg Tablet, 1,000 MG PO Q8H PRN for PAIN-MILD (1-4) Prescribed by: DOMITILA TAO on 12/16/211106 Benzocaine/Menthol (Dermoplast Pain Relieving [place]) 78 Gm Aerosol, 56 EA TP UD PRN for PAIN- SEE INSTRUCTIONS Prescribed by: DOMITILA TAO on 12/16/21 110 Dibucaine (Dibucaine) 30 Gm Oint, 0 GM TOP UD PRN for PAIN- SEE INSTRUCTIONS Prescribed by: DOMITILA TAO on 12/16/211106 Docusate Sodium (Docusate Sodium) 100 Mg Capsule, 100 MG PO BID PRN for CONSTIPATION-1ST LINE Prescribed by: DOMITILA TAO on 12/16/211106 Ferrous Sulfate (Ferosul) 325 Mg Tablet, 325 MG PO DAILY Prescribed by: DOMITILA TAO on 12/16/211106 Ibuprofen (Ibu) 600 Mg Tablet, 600 MG PO Q6HR Prescribed by: DOMITILA TAO on 12/16/211106 Vit No.124/Iron/FA ( Vitamin Tablet) 1 Each Tablet, 1 EACH PO DAILY, (Reported) Entered as Reported by: JULY MUÑIZ on 11/10/181913 Review of Systems Review of Systems Constitutional: No chills, No diaphoresis Eyes: Denies Blindness, Denies Blurred Vision Ears: Denies Dizziness, Denies Pain Nose: denies clots Mouth: see HPI All Other Systems Reviewed Negative Unless Noted: Yes Past Mardzrg-Jdfwii-Ihuznk Hx Patient Social History Tobacco Use?: No Use of E-Cig and/or Vaping dev: Yes E-Cig or Vaping type used: Nicotine Use of E-Cig and/or Vaping Jerson: Current Everyday User Substance use?: No Alcohol Use?: No Pt feels they are or have been: No Immunizations Up To Date Influenza Vaccine Up-to-Date: No; Not Current Past Medical History Surgery/Hospitalization HX: None Family Medical History FH: esophageal cancer 19 FATHER Physical Exam Vital Signs Vital Signs - First Documented 06/18/22 18:59 Temp 37.4 Pulse 118 Resp 18 B/P (MAP) 137/77 (97) Pulse Ox 98 O2 Delivery Room Air Height, Weight, BMI Height: 5'8.00" Weight: 267lbs. 0.0oz. 121.604785hv; 36.57 BMI Method: General Appearance: WD/WN, mild distress Eyes: bilateral eye normal inspection, bilateral eye PERRL, bilateral eye EOMI Ears: bilateral ear auricle normal, bilateral ear canal normal, bilateral ear TM normal Nose: normal inspection; No active bleeding Mouth/Throat: other (Mild gingival swelling without pointing and significant decay of the posterior most upper maxillary molar.) Progress/Results/Core Measures Results/Orders Vital Signs/I&O 06/18/22 18:59 Temp 37.4 Pulse 118 Resp 18 B/P (MAP) 137/77 (97) Pulse Ox 98 O2 Delivery Room Air Blood Pressure Mean: 97 Progress Progress Note : Time: 19:19 Progress Note Toradol, Augmentin, viscous lidocaine and follow-up with a dentist. Departure Impression Primary Impression: Dental abscess Disposition: 01 HOME, SELF-CARE Condition: Stable Departure-Patient Inst. Decision time for Depature: 19:20 Referrals: NO,LOCAL PHYSICIAN (PCP/Family) Primary Care Physician Patient Instructions: Tooth Abscess (DC) Add. Discharge Instructions: Viscous lidocaine 5 cc on gauze applied to the tooth in question for 30 minutes without eating or drinking every 6 hours as needed for pain. Tylenol 1000 mg every 8 hours as needed for pain. Ibuprofen 800 mg every 8 hours or naproxen 2 tablets twice a day as necessary for pain. Augmentin 1 tablet twice a day for 7 to 10 days. Make a follow-up appointment in the next 1 to 2 weeks with a dentist. All discharge instructions reviewed with patient and/or family. Voiced understanding. Scripts Amoxicillin/Potassium Clav (Amox Tr-K Clv 875-125 mg Tab) 875 Mg-125 Mg Tablet 1 EACH PO BID for 10 Days, #20 TAB 0 Refills Prov: ARCELIA JONES 06/18/22 Work/School Note: Work Release Form Date Seen in the Emergency Department: Jun 18, 2022 Return to Work: Jun 20, 2022 Restrictions: No Restrictions ARCELIA JONES Jun 18, 2022 19:22
[2022-06-18] MEDS ORDERED: KETOROLAC 60 MG/2 ML VIAL IM ONE (19:30)
[2022-06-18] MEDS ORDERED: LIDOCAINE 2% VISCOUS 15 ML UDC PO ONE (19:30)
[2022-06-18 19:39] VITALS: BP 127/85
== END 2022-06-18 19:38 | disposition home or self-care (01) ==
LOC: EDUNIT# 18:55 → ER 18:57
DX: K04.7 Periapical abscess without sinus (principal); F17.290 Nicotine dependence, other tobacco product, uncomplicated; Z28.310 Unvaccinated for COVID-19
CPT/HCPCS: 96372; 99284